=== PATIENT | female | born 1985 | race Caucasian/White ===

== ENCOUNTER 2017-10-08 05:50 | Day surgery (SDC) | payer OTHER ==
[2017-10-08] MEDS ORDERED: PERCOCET 5-3251 EACH PO (11:29)
== END 2017-10-08 17:20 | disposition home or self-care (01) ==
LOC: CIR.AMB 05:50
DX: Z30.2 Encounter for sterilization (principal)

== ENCOUNTER 2018-07-16 19:51 | Emergency (ER) | payer OTHER ==
[~2018-07-16] VITALS: Ht 157.5 cm; Wt 83.5 kg
[~2018-07-16 19:51] MED LIST: PERCOCET 5-3251 EACH PO
[2018-07-17] MEDS ORDERED: AYGESTIN5 MG PO (10:53)
[2018-07-17] MEDS ORDERED: SIDEROL TABLET1 EACH PO (10:54)
== END 2018-07-17 11:18 | disposition home or self-care (01) ==
LOC: ER 19:51
DX: D26.9 Other benign neoplasm of uterus, unspecified (principal); D64.9 Anemia, unspecified